=== PATIENT | male | born 1960 | race Caucasian/White ===

== ENCOUNTER 2024-05-19 09:30 | Emergency (ER) | payer OTHER ==
[2024-05-19] MEDS ORDERED: Sodium Chloride 0.9% 10 ML Syringe FLUSH PRN (09:34)
[2024-05-19] MEDS ORDERED: Naloxone 2 MG/2 ML Syringe IVPUSH PRN (09:34)
[2024-05-19] MEDS: Lactated Ringers 1,000 ML IV SCH (09:35)
[2024-05-19] MEDS: HYDROmorphone 2 MG/ML Syringe IVPUSH PRN (09:35)
[2024-05-19] MEDS: Diphtheria,Pertussis(Acell),Tetanus Vaccine 0.5 ML Syringe IM ONE (09:39)
[2024-05-19 09:56] LABS: BASOPHILS ABSOLUTE AUTO 0.03 K/uL (0.02-0.10); BASOPHILS PERCENT AUTO 0.4 % (0.0-0.5); EOSINOPHILS ABSOLUTE AUTO 0.09 K/uL (0.04-0.40); EOSINOPHILS PERCENT AUTO 1.2 % (1.0-5.0); HEMATOCRIT 45.9 % (40.0-54.0); HEMOGLOBIN 15.5 g/dL (13.0-18.0); LYMPHOCYTES ABSOLUTE AUTO 2.34 K/uL (1.50-4.00); LYMPHOCYTES PERCENT AUTO 32.1 % (20.0-40.0); MEAN CORPUSCULAR HEMOGLOBIN 30.9 pg (27.0-32.0); MEAN CORPUSCULAR HGB CONC 33.8 g/dL (31.0-35.0); MEAN CORPUSCULAR VOLUME 92 fL (76-96); MEAN PLATELET VOLUME 10.4 fL (6.0-10.0); MONOCYTES ABSOLUTE AUTO 0.59 K/uL (0.20-0.80); MONOCYTES PERCENT AUTO 8.1 % (3.0-10.0); NEUTROPHILS ABSOLUTE AUTO 4.24 K/uL (2.00-7.50); NEUTROPHILS PERCENT AUTO 58.2 % (45.0-70.0); PLATELET COUNT,PLT 185 K/uL (150-400); RED BLOOD CELL COUNT 5.01 M/uL (4.50-6.50); RED CELL DISTRIBUTION WIDTH 13.5 % (11.0-16.0); WHITE BLOOD CELL COUNT,WBC 7.3 K/uL (4.0-11.0)
[2024-05-19 10:17] LABS: A/G RATIO 1.1 (0.8-2.0); ALANINE AMINOTRANSFERASE,ALT 34 U/L (12-78); ALBUMIN 3.6 g/dL (3.4-5.0); ALKALINE PHOSPHATASE 79 U/L (46-116); ANION GAP 13.4 mmol/L (5.0-15.0); ASPARTATE AMNIOTRANSFERASE,AST 39 U/L (15-37); BILIRUBIN TOTAL 0.8 mg/dL (0.0-1.0); BLOOD UREA NITROGEN,BUN 20 mg/dL (8-26); BUN/CREATININE RATIO 16.7 (6-25); CALCIUM 8.5 mg/dL (8.5-10.1); CARBON DIOXIDE,CO2 26.3 mmol/L (21.0-32.0); CHLORIDE,CL 105 mmol/L (98-107); ESTIMATED GFR 68 mL/min (>60); GLUCOSE RANDOM 160 mg/dL (74-100); POTASSIUM,K 3.7 mmol/L (3.5-5.1); PROTEIN TOTAL,TP 6.8 g/dL (6.4-8.2); SODIUM,NA 141 mmol/L (136-145)
== END 2024-05-19 11:40 ==
LOC: LB.ED 09:30
DX: T21.22XA Burn of second degree of abdominal wall, initial encounter (principal); T24.232A Burn of second degree of left lower leg, initial encounter; T24.292A Burn of second degree of multiple sites of left lower limb, except ankle and foot, initial encounter; T24.221A Burn of second degree of right knee, initial encounter; T24.201A Burn of second degree of unspecified site of right lower limb, except ankle and foot, initial encounter; T31.44 Burns involving 40-49% of body surface with 40-49% third degree burns; X04.XXXA Exposure to ignition of highly flammable material, initial encounter
CPT/HCPCS: 36415; 51702; 80053; 85025; 90471; 90715; 96361; 96374; 99285; J1170; J7120; A0425; A0429